=== PATIENT | female | born 1965 | race African-American/Black ===

== ENCOUNTER 2017-12-18 10:41 | Inpatient (IN) | payer BC ==
[2017-12-18 14:14] VITALS: BMI 23.6
--- NOTE | 2017-12-18 16:54 | HP ---
CIWA Score - CIWA Score Nausea/Vomitin (Nausea) Muscle Tremors: 4-Moderate,w/Arms Extend Anxiety: 4-Mod. Anxious/Guarded Agitation: 3 Paroxysmal Sweats: 1-Minimal Palms Moist Orientation: 0-Oriented Tacttile Disturbances: 0-None Auditory Disturbances: 0-None Visual Disturbances: 0-None Headache: 4-Moderately Severe CIWA-Ar Total Score: 19 Admission ROS S - HPI Chief Complaint: Alcohol withdrawal symptoms Allergies/Adverse Reactions: Allergies Allergy/AdvReac Type Severity Reaction Status Date / Time mushroom Allergy Severe Difficulty Verified 12/18/17 15:02 Breathing History of Present Illness: 52 years old female with 2 years history of alcohol and opioid dependence is seeking admission to detox. Urine drug test for opioid was negative. Patient has been to previous detox at 18 years. Reports suicidal attempt in 2016 and denies suicidal ideation at this time. Reports past medical history of DM, HTN, seizure and depression. This is patient's first admission to [facility]. - Ebola screening Have you traveled outside of the country in the last 21 days: No Have you had contact with anyone from an Ebola affected area: No Have you been sick,other than usual withdrawal symptoms: No - Review of Systems Constitutional: Chills, Loss of Appetite, Malaise, Night Sweats, Weakness EENT: reports: No Symptoms Reported Respiratory: reports: No Symptoms reported Cardiac: reports: No Symptoms Reported GI: reports: Nausea, Poor Appetite, Poor Fluid Intake, Abdominal cramping : reports: No Symptoms Reported Musculoskeletal: reports: No Symptoms Reported Neuro: reports: Headache, Tingling, Tremors Endocrine: reports: No Symptoms Reported Hematology: reports: No Symptoms Reported Psychiatric: reports: Mood/Affect Appropiate, Orientated x3 Other Systems: Reviewed and Negative Patient History - Patient Medical History Hx Anemia: No Hx Asthma: No Hx Chronic Obstructive Pulmonary Disease (COPD): No Hx Cardiac Disorders: No Hx Hypertension: No Hx Hypercholesterolemia: No HX Cerebrovascular Accident: No Hx Seizures: Yes (10/2017) Hx Diabetes: Yes Hx Gastrointestinal Disorders: No Hx Genitourinary Disorders: No Hx Sexually Transmitted Disorders: No Hx Renal Disease (ESRD): No Hx Thyroid Disease: No Hx Human Immunodeficiency Virus (HIV): No (NEGATIVE 2016) Hx Hepatitis C: No (NEGATIVE 2016) Hx Depression: Yes Hx Suicide Attempt: Yes (attempt sep 2017 with pills. Denies suicidal ideation at this time) Hx Bipolar Disorder: Yes Hx Schizophrenia: Yes - Patient Surgical History Past Surgical History: Yes Hx Neurologic Surgery: No Hx Cataract Extraction: No Hx Cardiac Surgery: No Hx Lung Surgery: No Hx Breast Surgery: No Hx Breast Biopsy: No Hx Abdominal Surgery: No Hx Appendectomy: No Hx Cholecystectomy: Yes (1999) Hx Genitourinary Surgery: No Hx Section: No Hx Orthopedic Surgery: No Hx Hysterectomy: Yes Other Surgical History: Gastric bypass in jul 2013, Bowel obstruction 2013,2014 ,2015, Hystrectomy Anesthesia Reaction: No - PPD History Previous Implant?: No Documented Results: Negative w/o proof Implanted On Prior [facility] Admission?: No PPD to be Administered?: Yes - Reproductive History Patient is a Female of Child Bearing Age (11 -55 yrs old): Yes LMP comment: Hystrectomy 2014 Patient : No - Smoking Cessation Smoking history: Never smoked - Substance & Tx. History Hx Alcohol Use: Yes Hx Substance Use: Yes Substance Use Type: Alcohol Hx Substance Use Treatment: Yes ([facility] [place]) - Substances Abused Alcohol Route: Oral Frequency: Daily Amount used: 2 pints of Vodka and Melody Age of first use: 13 Date of Last Use: 12/17/17 Percocets Route: Oral Frequency: Daily Amount used: 325mg Age of first use: 49 Date of Last Use: 12/04/17 Family Disease History - Family Disease History Family Disease History: Diabetes: Father (), Mother (COPD), Heart Disease: Father, Mother, Respiratory: Mother Admission Physical Exam [facility] - Vital Signs Vital Signs: Vital Signs - 24 hr 12/18/17 14:12 Temperature 98.1 F Pulse Rate 72 Respiratory 20 Rate Blood Pressure 133/77 - Physical General Appearance: Yes: Moderate Distress, Tremorous, Irritable, Anxious HEENTM: Yes: EOMI, Normal Voice, JANNA Respiratory: Yes: Lungs Clear, Normal Breath Sounds, No Respiratory Distress Neck: Yes: Supple Breast: Yes: Breast Exam Deferred Cardiology: Yes: Regular Rhythm, Regular Rate, S1, S2 Abdominal: Yes: Within Normal Limits Genitourinary: Yes: Within Normal Limits Back: Yes: Normal Inspection Musculoskeletal: Yes: Within Normal Limits Extremities: Yes: Tremors Neurological: Yes: Alert, Normal Response Integumentary: Yes: Warm Lymphatic: Yes: Within Normal Limits - Diagnostic (1) Alcohol dependence with uncomplicated withdrawal Current Visit: Yes Status: Chronic (2) HTN (hypertension) Current Visit: Yes Status: Chronic (3) Depression Current Visit: Yes Status: Chronic (4) Seizure Current Visit: Yes Status: Chronic Cleared for Admission [facility] - Detox or Rehab [facility] Level of Care: Medically Managed Detox Regimen/Protocol: Librium S Breath Alcohol Content Breath Alcohol Content: 0 Urine Pregancy Test - Result Urine Test Results: Negative- NO Line Present Urine Drug Screen - Results Drug Screen Negative: Yes
[2017-12-18] MEDS ORDERED: MAG HYDROX/AL HYDROX/SIMETH 30 ML UNIT-DOSE CUP PO PRN (17:07)
[2017-12-18] MEDS ORDERED: IBUPROFEN 400 MG TABLET (FP) PO PRN (17:07)
[2017-12-18] MEDS ORDERED: MENTHOL/PHENOL 1 EACH UD MM PRN (17:07)
[2017-12-18] MEDS ORDERED: LOPERAMIDE HCL 2 MG CAPSULE PO PRN (17:07)
[2017-12-18] MEDS ORDERED: guaiFENesin/D-METHORPHAN HB 10 ML UNIT-DOSE CUPS PO PRN (17:07)
[2017-12-18] MEDS ORDERED: P-EPHED 60MG/TRIPROLIDI 2.5MG TABLET PO PRN (17:07)
[2017-12-18] MEDS ORDERED: ACETAMINOPHEN 325 MG TABLET (FP) PO PRN (17:07)
[2017-12-18] MEDS ORDERED: MAGNESIUM HYDROX 2400MG/30ML ORAL SUSPENSION 30 ML CUP PO PRN (17:07)
[2017-12-18] MEDS ORDERED: MAGNESIUM CITRATE 300 ML BOTTLE PO PRN (17:07)
[2017-12-18] MEDS: chlordiazePOXIDE HCL 25 MG CAPSULE PO PRN (17:59)
[2017-12-18] MEDS: THIAMINE HCL 100 MG TABLET (FP) PO SCH (22:05)
[2017-12-18] MEDS: chlordiazePOXIDE HCL 25 MG CAPSULE PO SCH (22:05)
[2017-12-18 22:54] LABS: URINE APPEARANCE CLOUDY; URINE BLOOD NEGATIVE (NEGATIVE); URINE COLOR AMBER; URINE GLUCOSE (UA) NEGATIVE (NEGATIVE); URINE KETONE TRACE (NEGATIVE); URINE LEUK ESTERASE NEGATIVE (NEGATIVE); URINE NITRITE NEGATIVE (NEGATIVE); URINE UROBILINOGEN 4.0 E.U/dl mg/dL (0.2-1.0)
[2017-12-18 23:00] LABS: URINE PROTEIN 2+ (NEGATIVE)
[2017-12-18 23:14] LABS: EPI CELLS MODERATE /HPF (FEW); URINE BACTERIA FEW /hpf (NONE SEEN); URINE MUCUS FEW
[2017-12-19] MEDS: chlordiazePOXIDE HCL 25 MG CAPSULE PO SCH ×4 (05:09→22:24)
[2017-12-19 09:59] LABS: HEMATOCRIT 35.5 % (32.4-45.2); HEMOGLOBIN 11.6 GM/dL (10.7-15.3); MCH 29.1 pg (25.7-33.7); MCHC 32.8 g/dl (32.0-36.0); MEAN CELL VOLUME 88.7 fl (80-96); MEAN PLT VOLUME 8.1 fl (7.5-11.1); PLATELET COUNT 236 K/MM3 (134-434); RDW 17.3 % (11.6-15.6); WHITE BLOOD COUNT 3.8 K/mm3 (4.0-10.0)
[2017-12-19 10:04] LABS: CHLORIDE 103 mmol/L (98-107); SODIUM 139 mmol/L (136-145)
[2017-12-19] MEDS: PRENATAL VITAMINS W/ FOLIC ACID TABLET (FP) PO SCH (10:06)
[2017-12-19 10:15] LABS: ALBUMIN 3.7 g/dl (3.4-5.0); ALK PHOS 96 U/L (45-117); ANION GAP 9 (8-16); BILIRUBIN,TOTAL 0.2 mg/dL (0.2-1.0); BLOOD UREA NITROGEN 14 mg/dL (7-18); CO2 27 mmol/L (21-32); CREATININE 0.8 mg/dL (0.55-1.02); GLUCOSE,RANDOM 103 mg/dL (74-106); SGOT/AST 22 U/L (15-37); SGPT/ALT 21 U/L (12-78); TOT PROT 7.5 g/dl (6.4-8.2)
--- NOTE | 2017-12-19 11:36 | PN ---
S CIWA - CIWA Score Nausea/Vomitin-Mild Nausea/No Vomiting Muscle Tremors: 3 Anxiety: 4-Mod. Anxious/Guarded Agitation: 4-Moderately Restless Paroxysmal Sweats: 3 Orientation: 0-Oriented Tacttile Disturbances: 0-None Auditory Disturbances: 0-None Visual Disturbances: 0-None Headache: 0-None Present CIWA-Ar Total Score: 15 BHS Progress Note (SOAP) Subjective: Anxiety,tremors,sweating,interrupted sleep,restless Objective: 12/19/17 11:34 Vital Signs - 8 hr 12/19/17 12/19/17 06:04 10:15 Temperature 97.9 F 97.9 F Pulse Rate 60 59 L Respiratory 16 16 Rate Blood Pressure 122/75 118/86 Laboratory Tests 12/18/17 12/19/17 12/19/17 Unknown 07:50 07:50 WBC 3.8 L RBC 4.00 Hgb 11.6 Hct 35.5 MCV 88.7 MCH 29.1 MCHC 32.8 RDW 17.3 H Plt Count 236 MPV 8.1 Sodium 139 Potassium 4.0 Chloride 103 Carbon Dioxide 27 Anion Gap 9 BUN 14 Creatinine 0.8 Creat Clearance w eGFR > 60 Random Glucose 103 Calcium 8.0 L Total Bilirubin 0.2 AST 22 ALT 21 Alkaline Phosphatase 96 Total Protein 7.5 Albumin 3.7 Urine Color [place] Urine Appearance Cloudy Urine pH 6.0 Ur Specific [place] 1.027 Urine Protein 2+ H Urine Glucose (UA) Negative Urine Ketones Trace H Urine Blood Negative Urine Nitrite Negative Urine Bilirubin 2.0 Urine Urobilinogen 4.0 e.u/dl H Ur Leukocyte Esterase Negative Urine WBC (Auto) 8 Urine RBC (Auto) 2 Ur Epithelial Cells Moderate Urine Bacteria Few Urine Mucus Few labs noted Assessment: 12/19/17 11:34 Withdrawal sx. Plan: Continue detox
[2017-12-19] MEDS: chlordiazePOXIDE HCL 25 MG CAPSULE PO PRN (14:04)
[2017-12-19] MEDS ORDERED: ONDANSETRON *ODT* 4 MG TABLET SL PRN (14:08)
[2017-12-19] MEDS ORDERED: chlordiazePOXIDE HCL 25 MG CAPSULE PO ONE (15:35)
--- NOTE | 2017-12-19 15:39 | PN ---
S Progress Note Note: Patient reports hx of frequent seizure and and feels like she will have a seizure. Discussed with Dr. Jagdeep Vera. STAT dose of Librium ordered. Continue to monitor patient.
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
[2017-12-19] MEDS ORDERED: QUEtiapine FUMARATE 400 MG TABLET PO SCH (22:00)
[2017-12-19] MEDS: traZODone HCL 100 MG TABLET (FP) PO SCH (22:17)
[2017-12-19] MEDS: QUEtiapine FUMARATE 200 MG TABLET PO SCH (22:17)
[2017-12-19] MEDS: THIAMINE HCL 100 MG TABLET (FP) PO SCH (22:18)
[2017-12-19] MEDS: OLANZapine 10 MG TABLET PO SCH (22:18)
[2017-12-20] MEDS: chlordiazePOXIDE HCL 25 MG CAPSULE PO SCH ×3 (05:18→17:50)
--- NOTE | 2017-12-20 10:11 | PN ---
S CIWA - CIWA Score Nausea/Vomitin-No Nausea/No Vomiting Muscle Tremors: 3 Anxiety: 3 Agitation: 3 Paroxysmal Sweats: 1-Minimal Palms Moist Orientation: 0-Oriented Tacttile Disturbances: 1-Very Mild Itch/Numbness Auditory Disturbances: 0-None Visual Disturbances: 0-None Headache: 0-None Present CIWA-Ar Total Score: 11 BHS Progress Note (SOAP) Subjective: tremor sweat anxiety Objective: 12/20/17 10:09 Vital Signs Temperature 97.5 F L 12/20/17 06:01 Pulse Rate 50 L 12/20/17 06:01 Respiratory Rate 16 12/20/17 06:01 Blood Pressure 110/66 12/20/17 06:01 O2 Sat by Pulse Oximetry (%) Laboratory Last Values WBC 3.8 K/mm3 (4.0-10.0) L 12/19/17 07:50 RBC 4.00 M/mm3 (3.60-5.2) 12/19/17 07:50 Hgb 11.6 GM/dL (10.7-15.3) 12/19/17 07:50 Hct 35.5 % (32.4-45.2) 12/19/17 07:50 MCV 88.7 fl (80-96) 12/19/17 07:50 MCH 29.1 pg (25.7-33.7) 12/19/17 07:50 MCHC 32.8 g/dl (32.0-36.0) 12/19/17 07:50 RDW 17.3 % (11.6-15.6) H 12/19/17 07:50 Plt Count 236 K/MM3 (134-434) 12/19/17 07:50 MPV 8.1 fl (7.5-11.1) 12/19/17 07:50 Sodium 139 mmol/L (136-145) 12/19/17 07:50 Potassium 4.0 mmol/L (3.5-5.1) 12/19/17 07:50 Chloride 103 mmol/L (98-107) 12/19/17 07:50 Carbon Dioxide 27 mmol/L (21-32) 12/19/17 07:50 Anion Gap 9 (8-16) 12/19/17 07:50 BUN 14 mg/dL (7-18) 12/19/17 07:50 Creatinine 0.8 mg/dL (0.55-1.02) 12/19/17 07:50 Creat Clearance w eGFR > 60 (>60) 12/19/17 07:50 Random Glucose 103 mg/dL (74-106) 12/19/17 07:50 Calcium 8.0 mg/dL (8.5-10.1) L 12/19/17 07:50 Total Bilirubin 0.2 mg/dL (0.2-1.0) 12/19/17 07:50 AST 22 U/L (15-37) 12/19/17 07:50 ALT 21 U/L (12-78) 12/19/17 07:50 Alkaline Phosphatase 96 U/L (45-117) 12/19/17 07:50 Total Protein 7.5 g/dl (6.4-8.2) 12/19/17 07:50 Albumin 3.7 g/dl (3.4-5.0) 12/19/17 07:50 Urine Color Verenice 12/18/17 Unknown Urine Appearance Cloudy 12/18/17 Unknown Urine pH 6.0 (5.0-8.0) 12/18/17 Unknown Ur Specific [place] 1.027 (1.001-1.035) 12/18/17 Unknown Urine Protein 2+ (NEGATIVE) H 12/18/17 Unknown Urine Glucose (UA) Negative (NEGATIVE) 12/18/17 Unknown Urine Ketones Trace (NEGATIVE) H 12/18/17 Unknown Urine Blood Negative (NEGATIVE) 12/18/17 Unknown Urine Nitrite Negative (NEGATIVE) 12/18/17 Unknown Urine Bilirubin 2.0 (NEGATIVE) 12/18/17 Unknown Urine Urobilinogen 4.0 e.u/dl mg/dL (0.2-1.0) H 12/18/17 Unknown Ur Leukocyte Esterase Negative (NEGATIVE) 12/18/17 Unknown Urine WBC (Auto) 8 /hpf (3-5) 12/18/17 Unknown Urine RBC (Auto) 2 /hpf (0-3) 12/18/17 Unknown Ur Epithelial Cells Moderate /HPF (FEW) 12/18/17 Unknown Urine Bacteria Few /hpf (NONE SEEN) 12/18/17 Unknown Urine Mucus Few 12/18/17 Unknown RPR Titer Nonreactive (NONREACTIVE) 12/19/17 07:50 lab noted Assessment: 12/20/17 10:10 withdrawal sx Plan: continue detox
[2017-12-20] MEDS: PRENATAL VITAMINS W/ FOLIC ACID TABLET (FP) PO SCH (10:26)
[2017-12-20] MEDS: THIAMINE HCL 100 MG TABLET (FP) PO SCH (22:26)
[2017-12-20] MEDS: traZODone HCL 100 MG TABLET (FP) PO SCH (22:26)
[2017-12-20] MEDS: GABAPENTIN 300 MG CAPSULE (FP) PO SCH (22:26)
[2017-12-20] MEDS: OLANZapine 10 MG TABLET PO SCH (22:26)
[2017-12-20] MEDS: QUEtiapine FUMARATE 200 MG TABLET PO SCH (22:26)
[2017-12-20] MEDS: chlordiazePOXIDE 5 MG CAPSULE PO SCH (22:45)
[2017-12-21] MEDS: chlordiazePOXIDE 5 MG CAPSULE PO SCH ×3 (06:00→17:53)
--- NOTE | 2017-12-21 09:48 | PN ---
BHS Progress Note (SOAP) Subjective: poor sleep, gi upset, shaky Objective: 12/21/17 09:48 Laboratory Tests 12/18/17 12/19/17 12/19/17 Unknown 07:50 07:50 WBC 3.8 L RBC 4.00 Hgb 11.6 Hct 35.5 MCV 88.7 MCH 29.1 MCHC 32.8 RDW 17.3 H Plt Count 236 MPV 8.1 Sodium 139 Potassium 4.0 Chloride 103 Carbon Dioxide 27 Anion Gap 9 BUN 14 Creatinine 0.8 Creat Clearance w eGFR > 60 Random Glucose 103 Calcium 8.0 L Total Bilirubin 0.2 AST 22 ALT 21 Alkaline Phosphatase 96 Total Protein 7.5 Albumin 3.7 Urine Color Verenice Urine Appearance Cloudy Urine pH 6.0 Ur Specific [place] 1.027 Urine Protein 2+ H Urine Glucose (UA) Negative Urine Ketones Trace H Urine Blood Negative Urine Nitrite Negative Urine Bilirubin 2.0 Urine Urobilinogen 4.0 e.u/dl H Ur Leukocyte Esterase Negative Urine WBC (Auto) 8 Urine RBC (Auto) 2 Ur Epithelial Cells Moderate Urine Bacteria Few Urine Mucus Few RPR Titer 12/19/17 07:50 WBC RBC Hgb Hct MCV MCH MCHC RDW Plt Count MPV Sodium Potassium Chloride Carbon Dioxide Anion Gap BUN Creatinine Creat Clearance w eGFR Random Glucose Calcium Total Bilirubin AST ALT Alkaline Phosphatase Total Protein Albumin Urine Color Urine Appearance Urine pH Ur Specific [place] Urine Protein Urine Glucose (UA) Urine Ketones Urine Blood Urine Nitrite Urine Bilirubin Urine Urobilinogen Ur Leukocyte Esterase Urine WBC (Auto) Urine RBC (Auto) Ur Epithelial Cells Urine Bacteria Urine Mucus RPR Titer Nonreactive Vital Signs - 24 hr 12/20/17 12/20/17 12/20/17 10:20 14:12 17:23 Temperature 96.4 F L 97.7 F 98.2 F Pulse Rate 53 L 70 67 Respiratory 18 18 18 Rate Blood Pressure 119/80 109/58 135/62 12/20/17 12/21/17 12/21/17 23:04 00:29 03:30 Temperature 97.7 F Pulse Rate 48 L Respiratory 16 18 18 Rate Blood Pressure 133/68 12/21/17 12/21/17 06:19 09:18 Temperature 98.2 F 97.3 F L Pulse Rate 58 L 68 Respiratory 16 18 Rate Blood Pressure 119/65 129/85 Assessment: 12/21/17 09:48 etoh dep in withdrawal Plan: cont detox protocol dc in am
[2017-12-21] MEDS: PRENATAL VITAMINS W/ FOLIC ACID TABLET (FP) PO SCH (10:19)
[2017-12-21] MEDS: GABAPENTIN 300 MG CAPSULE (FP) PO SCH ×2 (10:19→22:11)
[2017-12-21] MEDS: chlordiazePOXIDE HCL 25 MG CAPSULE PO PRN (14:37)
--- NOTE | 2017-12-21 21:56 | EKG ---
Test Reason : Blood Pressure : / mmHG Vent. Rate : 050 BPM Atrial Rate : 050 BPM P-R Int : 174 ms QRS Dur : 088 ms QT Int : 470 ms P-R-T Axes : 049 -05 009 degrees QTc Int : 428 ms SINUS BRADYCARDIA MINIMAL VOLTAGE CRITERIA FOR LVH, MAY BE NORMAL VARIANT BORDERLINE ECG WHEN COMPARED WITH ECG OF 18-DEC-2017 18:06, NO SIGNIFICANT CHANGE WAS FOUND Confirmed by MONICA NOE MD ([id number]) on 12/21/2017 9:56:13 PM Referred By: Confirmed By:MONICA NOE MD
--- NOTE | 2017-12-21 21:57 | EKG ---
Test Reason : Blood Pressure : / mmHG Vent. Rate : 060 BPM Atrial Rate : 052 BPM P-R Int : 000 ms QRS Dur : 082 ms QT Int : 422 ms P-R-T Axes : 000 -01 012 degrees QTc Int : 422 ms LIKELY SINUS RHYTHM BASELINE ARTIFACT NO PREVIOUS ECGS AVAILABLE Confirmed by MONICA NOE MD ([id number]) on 12/21/2017 9:57:02 PM Referred By: Confirmed By:MONICA NOE MD
[2017-12-21] MEDS: OLANZapine 10 MG TABLET PO SCH (22:11)
[2017-12-21] MEDS: THIAMINE HCL 100 MG TABLET (FP) PO SCH (22:11)
[2017-12-21] MEDS: QUEtiapine FUMARATE 200 MG TABLET PO SCH (22:11)
[2017-12-21] MEDS: traZODone HCL 100 MG TABLET (FP) PO SCH (22:11)
[2017-12-21] MEDS: chlordiazePOXIDE HCL 10 MG CAPSULE PO SCH (22:11)
[2017-12-22] MEDS: chlordiazePOXIDE HCL 10 MG CAPSULE PO SCH (05:44)
--- NOTE | 2017-12-22 08:38 | DS ---
[facility] Detox Discharge Summary Admission Date: 12/18/17 Discharge Date: 12/22/17 - History Present History: Alcohol Dependence, Opioid Dependence Pertinent Past History: SEE BELOW - Physical Exam Results Vital Signs: Vital Signs Temperature 97.9 F 12/22/17 06:00 Pulse Rate 57 L 12/22/17 06:00 Respiratory Rate 18 12/22/17 06:00 Blood Pressure 113/65 12/22/17 06:00 O2 Sat by Pulse Oximetry (%) Pertinent Admission Physical Exam Findings: ADMITTED IN ACUTE WITHDRAWAL MEDICALLY STABLE DETOX COMPLETED DC TODAY Laboratory Tests 12/18/17 12/19/17 12/19/17 Unknown 07:50 07:50 WBC 3.8 L RBC 4.00 Hgb 11.6 Hct 35.5 MCV 88.7 MCH 29.1 MCHC 32.8 RDW 17.3 H Plt Count 236 MPV 8.1 Sodium 139 Potassium 4.0 Chloride 103 Carbon Dioxide 27 Anion Gap 9 BUN 14 Creatinine 0.8 Creat Clearance w eGFR > 60 Random Glucose 103 Calcium 8.0 L Total Bilirubin 0.2 AST 22 ALT 21 Alkaline Phosphatase 96 Total Protein 7.5 Albumin 3.7 Urine Color Ve[place]ice Urine Appearance Cloudy Urine pH 6.0 Ur Specific [place] 1.027 Urine Protein 2+ H Urine Glucose (UA) Negative Urine Ketones Trace H Urine Blood Negative Urine Nitrite Negative Urine Bilirubin 2.0 Urine Urobilinogen 4.0 e.u/dl H Ur Leukocyte Esterase Negative Urine WBC (Auto) 8 Urine RBC (Auto) 2 Ur Epithelial Cells Moderate Urine Bacteria Few Urine Mucus Few Valproic Acid RPR Titer 12/19/17 12/21/17 07:50 09:30 WBC RBC Hgb Hct MCV MCH MCHC RDW Plt Count MPV Sodium Potassium Chloride Carbon Dioxide Anion Gap BUN Creatinine Creat Clearance w eGFR Random Glucose Calcium Total Bilirubin AST ALT Alkaline Phosphatase Total Protein Albumin Urine Color Urine Appearance Urine pH Ur Specific [place] Urine Protein Urine Glucose (UA) Urine Ketones Urine Blood Urine Nitrite Urine Bilirubin Urine Urobilinogen Ur Leukocyte Esterase Urine WBC (Auto) Urine RBC (Auto) Ur Epithelial Cells Urine Bacteria Urine Mucus Valproic Acid < 3.000 L RPR Titer Nonreactive Vital Signs - 24 hr 12/21/17 12/21/17 12/21/17 09:18 14:32 17:51 Temperature 97.3 F L 97.2 F L 97.0 F L Pulse Rate 68 95 H 67 Respiratory 18 18 18 Rate Blood Pressure 129/85 130/70 118/73 12/21/17 12/22/17 12/22/17 22:54 00:30 03:30 Temperature 98.1 F Pulse Rate 57 L Respiratory 20 18 18 Rate Blood Pressure 129/69 12/22/17 06:00 Temperature 97.9 F Pulse Rate 57 L Respiratory 18 Rate Blood Pressure 113/65 - Treatment Hospital Course: Detox Protocol Followed, Detoxed Safely, Responded well, Discharged Condition Good, Rehab Referral Accepted - Medication Discharge Medications: Ambulatory Orders Divalproex [Depakote -] 500 mg PO DAILY 12/18/17 Gabapentin 300 mg PO PRN 12/18/17 Prazosin HCl [Minipress -] 2 mg PO HS 12/18/17 Quetiapine Fumarate [Seroquel -] 200 mg PO HS 12/18/17 Trazodone HCl 150 mg PO HS 12/18/17 - Diagnosis (1) Alcohol dependence with uncomplicated withdrawal Current Visit: Yes Status: Acute (2) Opiate dependence Current Visit: Yes Status: Acute (3) Bipolar disorder with psychotic features Current Visit: Yes Status: Chronic (4) Depression Current Visit: Yes Status: Chronic (5) HTN (hypertension) Current Visit: Yes Status: Chronic (6) Seizure Current Visit: Yes Status: Chronic
[2017-12-22 09:28] VITALS: BP 130/60; PULSE 66; TEMP 97.7
[2017-12-22] MEDS: PRENATAL VITAMINS W/ FOLIC ACID TABLET (FP) PO SCH (09:36)
[2017-12-22] MEDS: GABAPENTIN 300 MG CAPSULE (FP) PO SCH (09:36)
== END 2017-12-22 12:55 | disposition home or self-care (01) | DRG 773 ==
LOC: YASAS 10:41 → Y6N 16:12
PROVIDERS: ADMIT Internal Medicine; ATTEND Internal Medicine
PROC: HZ2ZZZZ Detoxification Services for Substance Abuse Treatment (ICD-10-PCS; principal; 2017-12-18)
DX: F10.230 Alcohol dependence with withdrawal, uncomplicated (principal); F11.20 Opioid dependence, uncomplicated; F31.5 Bipolar disorder, current episode depressed, severe, with psychotic features; F44.81 Dissociative identity disorder; I10 Essential (primary) hypertension; G40.909 Epilepsy, unspecified, not intractable, without status epilepticus; Z98.84 Bariatric surgery status; Z91.018 Allergy to other foods; Z91.5 Personal history of self-harm
CPT/HCPCS: 36415; 80053; 80164; 81003; 81015; 85027; 86593; 93005; 93010